=== PATIENT | female | born 2000 | race African-American/Black ===

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

== ENCOUNTER 2022-08-04 08:58 | Emergency (ER) | payer MEDICAID, OTHER ==
[~2022-08-04] VITALS: Ht 157.5 cm; Wt 54.5 kg
[2022-08-04 09:04] VITALS: TEMP 98
[2022-08-04 10:25] VITALS: BP 110/72; PULSE 102; RESP 18
== END 2022-08-04 11:03 | disposition left against medical advice (07) ==
LOC: EMS 09:12
DX: R10.9 Unspecified abdominal pain (principal)
CPT/HCPCS: 99281; Z7502

== ENCOUNTER 2023-01-08 11:09 | Inpatient (IN) | payer MEDICAID, OTHER ==
[~2023-01-08] VITALS: Ht 165.1 cm; Wt 50.0 kg
[2023-01-08] MEDS ORDERED: HALOPERIDOL LACTATE 5 MG/ML VIAL IM ONE (11:30)
[2023-01-08] MEDS ORDERED: LORazepam 2 MG/ML VIAL IM ONE (11:30)
[2023-01-08] MEDS ORDERED: DiphenhydrAMINE HCL 50 MG/ML VIAL IM ONE (11:30)
[2023-01-08] MEDS ORDERED: LORazepam 2 MG TABLET PO PRN (12:00)
[2023-01-08] MEDS ORDERED: QUEtiapine FUMARATE 100 MG TABLET PO PRN (12:00)
[2023-01-08] MEDS ORDERED: ZOLPIDEM TARTRATE 10 MG TABLET PO PRN (12:00)
[2023-01-08 13:08] LABS: COVID AG,FIA SOURCE NASAL SWAB
[2023-01-08 13:40] LABS: BASOPHILS % (AUTO) 0.5 % (0.0-2.0); EOSINOPHILS % (AUTO) 0.1 % (1.0-6.0); HEMATOCRIT 38.6 % (36-46); HEMOGLOBIN 12.9 g/dL (12.0-16.0); LYMPHOCYTES # (AUTO) 1.7 K/uL (1.0-4.8); LYMPHOCYTES % (AUTO) 25.5 % (22.0-44.0); MEAN CORPUSCULAR HEMOGLOBIN 29.6 pg (26.0-34.0); MEAN CORPUSCULAR HGB CONC 33.6 G/dL (31.0-37.0); MEAN CORPUSCULAR VOLUME 88 fL (80-100); MONOCYTES # (AUTO) 0.4 K/uL (0.1-1.0); MONOCYTES % (AUTO) 6.3 % (2.0-9.0); NEUTROPHILS # (AUTO) 4.4 K/uL (1.8-7.7); NEUTROPHILS % (AUTO) 67.6 % (40.0-70.0); PLATELET COUNT (AUTO) 275 K/uL (150-450); RED BLOOD CELL COUNT(AUTO) 4.38 MIL/uL (4.00-5.20); RED CELL DISTRIBUTION WIDTH 13.9 % (11.5-14.5); WHITE BLOOD COUNT (AUTO) 6.5 K/uL (4.5-11.0)
[2023-01-08 13:56] LABS: ALCOHOL, BLOOD (SERUM) < 3 mg/dL (0-10); ANION GAP 8 mmol/L (8-16); CALCIUM, TOTAL 9.2 mg/dL (8.8-10.5); CARBON DIOXIDE 26 mmol/L (22-29); CHLORIDE 102 mmol/L (98-107); CREATININE 1.17 mg/dL (0.60-1.30); GLOMERULAR FILTR. RATE CALC > 60 mL/min (>60); GLUCOSE,RANDOM 71 mg/dL (70-110); POTASSIUM 4.1 mmol/L (3.5-5.1); SODIUM SERUM 136 mmol/L (136-145); UREA NITROGEN, BLOOD 11 mg/dL (7-18)
[2023-01-08 14:02] LABS: ALANINE AMINOTRANSFERASE 18 U/L (12-78); ALBUMIN 4.1 g/dL (3.4-5.0); ALKALINE PHOSPHATASE 64 U/L (46-116); ASPARTATE AMINOTRANSFERASE 33 U/L (15-37); BILIRUBIN,TOTAL 2.1 mg/dL (0.1-1.0); TOTAL PROTEIN, SERUM 8.5 g/dL (6.4-8.2)
[2023-01-08 14:10] LABS: SARS-COV2 (COVID) ANTIGEN,FIA Negative (Negative)
[2023-01-09 11:29] VITALS: BP 116/75; PULSE 103; RESP 16; TEMP 97.3; O2SAT 99
[2023-01-09 22:17] VITALS: BP 117/82; PULSE 96; RESP 18; TEMP 98; O2SAT 96
[2023-01-10] MEDS ORDERED: MAGNESIUM HYDROXIDE SUSPENSION 30 ML UDCUP PO PRN (07:00)
[2023-01-10] MEDS ORDERED: GuaiFENesin/D-METHORPHAN [SUGAR-FREE] 200-20MG/10 ML SYRUP UDCUP PO PRN (07:00)
[2023-01-10] MEDS ORDERED: MAG HYDROX/ALUMINUM HYD/SIMETH ES 30 ML SUSPENSION UDCUP PO PRN (07:00)
[2023-01-10] MEDS ORDERED: IBUPROFEN 400 MG TABLET PO PRN (07:00)
[2023-01-10] MEDS ORDERED: ALBUTEROL SULFATE HFA 90 MCG/PUFF 8 GM INHALER IH PRN (07:00)
[2023-01-10] MEDS ORDERED: DOCUSATE SODIUM 100 MG CAPSULE PO PRN (07:00)
[2023-01-10] MEDS ORDERED: NICOTINE 14 MG/24 HOUR PATCH TD PRN (07:00)
[2023-01-10] MEDS ORDERED: PETROLATUM,WHITE 28 GM JELLY TP PRN (07:00)
[2023-01-10] MEDS ORDERED: ONDANSETRON HCL 4 MG TABLET PO PRN (07:00)
[2023-01-10] MEDS ORDERED: ACETAMINOPHEN 325 MG TABLET PO PRN (07:00)
[2023-01-10] MEDS ORDERED: LOPERAMIDE HCL 2 MG CAPSULE PO PRN (07:00)
[2023-01-10] MEDS ORDERED: CloNIDine HCL 0.1 MG TABLET PO PRN (07:00)
[2023-01-10 08:23] VITALS: BP 102/74; PULSE 100; RESP 18; TEMP 98; O2SAT 97
[2023-01-10 20:07] VITALS: BP 105/85; PULSE 98; RESP 18; TEMP 98; O2SAT 98
[2023-01-10] MEDS: OLANZapine 7.5 MG TABLET PO SCH (21:00)
[2023-01-11] MEDS: DIVALPROEX SODIUM 500 MG DR TABLET PO SCH ×3 (08:34→16:35)
[2023-01-11 08:42] VITALS: BP 101/67; PULSE 100; RESP 17; TEMP 97.5; O2SAT 99
[2023-01-11 08:42] LABS: APPEARANCE,URINE CLEAR (CLEAR); BILIRUBIN,URINE NEGATIVE (NEGATIVE); COLOR,URINE LIGHT YELLOW (YELLOW); GLUCOSE, URINE (UA) NEGATIVE (NEGATIVE); KETONES,URINE NEGATIVE (NEGATIVE); LEUKOCYTE ESTERASE ,URINE TRACE (NEGATIVE); NITRATE,URINE NEGATIVE (NEGATIVE); OCCULT BLOOD,URINE NEGATIVE (NEGATIVE); PROTEIN,URINE NEGATIVE (NEGATIVE); SPECIFIC GRAVITIY, URINE 1.008 (1.003-1.030); UROBILINOGEN,URINE <=1.0 mg/dL (<=1.0)
[2023-01-11 08:45] LABS: HEMOGLOBIN A1C 5.1 % (3.8-5.6)
[2023-01-11 08:49] LABS: ALCOHOL, URINE DRUG SCREEN NEGATIVE (NEGATIVE); AMPHET/METH SCREEN,URINE NEGATIVE (NEGATIVE); BARBITURATE SCREEN, URINE NEGATIVE (NEGATIVE); BENZODIAZEPINES SCREEN,URINE NEGATIVE (NEGATIVE); CANNABINOID SCREEN,URINE NEGATIVE (NEGATIVE); COCAINE SCREEN,URINE NEGATIVE (NEGATIVE); METHADONE SCREEN, URINE NEGATIVE (NEGATIVE); OPIATE SCREEN,URINE NEGATIVE (NEGATIVE); PHENCYCLIDINE SCREEN,URINE NEGATIVE (NEGATIVE)
[2023-01-11 08:49] LABS: THYROID STIMULATING HORMONE 0.78 uIU/mL (0.36-3.74)
[2023-01-11 09:02] LABS: BACTERIA,URINE Few /HPF (None Seen); RBC,URINE None Seen /HPF (0-2); SQUAMOUS EPITHELIAL CELL,UR Moderate /LPF (None Seen); WBC,URINE 0-2 /HPF (0-5)
[2023-01-11] MEDS: OLANZapine 7.5 MG TABLET PO SCH (20:39)
[2023-01-11 20:55] VITALS: RESP 18; TEMP 98
[2023-01-12 08:13] VITALS: RESP 16
[2023-01-12] MEDS: DIVALPROEX SODIUM 500 MG DR TABLET PO SCH ×2 (09:00→16:24)
[2023-01-12 20:00] VITALS: BP 136/80; PULSE 102; RESP 18; TEMP 97.3; O2SAT 100
[2023-01-12] MEDS: OLANZapine 7.5 MG TABLET PO SCH (20:18)
[2023-01-13] MEDS ORDERED: HALOPERIDOL LACTATE 5 MG/ML VIAL IM ONE (07:45)
[2023-01-13] MEDS ORDERED: LORazepam 2 MG/ML VIAL IM ONE (07:45)
[2023-01-13] MEDS ORDERED: DiphenhydrAMINE HCL 50 MG/ML VIAL IM ONE (07:45)
[2023-01-13 08:34] VITALS: RESP 18
[2023-01-13] MEDS: DIVALPROEX SODIUM 500 MG DR TABLET PO SCH ×2 (09:00→17:00)
[2023-01-13 20:56] VITALS: RESP 18
[2023-01-13] MEDS: OLANZapine 7.5 MG TABLET PO SCH (21:00)
[2023-01-14 09:07] VITALS: BP 101/67; PULSE 100; RESP 17; TEMP 97.3
[2023-01-14] MEDS: DIVALPROEX SODIUM 500 MG DR TABLET PO SCH ×2 (09:12→17:00)
[2023-01-14] MEDS ORDERED: DiphenhydrAMINE HCL 25 MG CAPSULE PO PRN (12:15)
[2023-01-14] MEDS: OLANZapine 7.5 MG TABLET PO SCH (21:00)
[2023-01-14 23:22] VITALS: RESP 18; TEMP 97.5
[2023-01-15] MEDS: DIVALPROEX SODIUM 500 MG DR TABLET PO SCH ×2 (08:20→17:00)
[2023-01-15 08:59] VITALS: BP 100/63; PULSE 105; RESP 17; TEMP 97.5; O2SAT 96
[2023-01-15] MEDS: OLANZapine 7.5 MG TABLET PO SCH (21:00)
[2023-01-15 23:45] VITALS: BP 121/60; PULSE 87; RESP 17; TEMP 97.8; O2SAT 96
[2023-01-16] MEDS: DIVALPROEX SODIUM 500 MG DR TABLET PO SCH ×4 (08:31→17:15)
[2023-01-16 08:57] VITALS: BP 105/67; PULSE 100; RESP 18; TEMP 98; O2SAT 98
[2023-01-16] MEDS: ARIPiprazole 10 MG TABLET PO SCH (09:14)
[2023-01-16 20:35] VITALS: BP 102/62; PULSE 77; RESP 18; TEMP 97.8
[2023-01-17] MEDS: DIVALPROEX SODIUM 500 MG DR TABLET PO SCH ×2 (09:00→17:00)
[2023-01-17] MEDS: ARIPiprazole 10 MG TABLET PO SCH (09:30)
[2023-01-17 09:38] VITALS: BP 97/62; PULSE 88; RESP 18; TEMP 98.3
[2023-01-18 06:40] VITALS: BP 105/64; PULSE 82; RESP 18; TEMP 97.9
[2023-01-18] MEDS: DIVALPROEX SODIUM 500 MG DR TABLET PO SCH (08:03)
[2023-01-18] MEDS: ARIPiprazole 10 MG TABLET PO SCH (08:03)
[2023-01-18 08:36] VITALS: BP 98/60; PULSE 81; RESP 18; TEMP 97.3; O2SAT 99
[2023-01-18] MEDS ORDERED: DIVA-112 PO (10:46)
[2023-01-18] MEDS ORDERED: ARIP10TA38 PO (10:46)
== END 2023-01-18 15:45 | disposition home or self-care (01) | DRG 750 ==
LOC: EMS 11:39 → B3A 01-09 10:10
PROVIDERS: ADMIT Psychiatry & Neurology Psychiatry; ATTEND Psychiatry & Neurology Psychiatry
PROC: GZHZZZZ Group Psychotherapy (ICD-10-PCS; principal; 2023-01-11)
DX: F25.0 Schizoaffective disorder, bipolar type (principal); R45.851 Suicidal ideations; Z91.148 Patient's other noncompliance with medication regimen for other reason; R00.0 Tachycardia, unspecified; Z20.822 Contact with and (suspected) exposure to COVID-19; E80.6 Other disorders of bilirubin metabolism; Z86.11 Personal history of tuberculosis; Z88.8 Allergy status to other drugs, medicaments and biological substances
CPT/HCPCS: 80053; 80061; 80164; 80307; 81001; 83036; 84443; 84703; 85025; 99285; G0480; J1200; J1630; J2060; Q0162

== ENCOUNTER 2023-11-13 07:52 | Emergency (ER) | payer MEDICAID, OTHER ==
[~2023-11-13] VITALS: Ht 165.1 cm; Wt 70.0 kg
[~2023-11-13 07:52] MED LIST: ARIP10TA38 PO; DIVA-112 PO
[2023-11-13 07:59] VITALS: BP 107/59; PULSE 88; RESP 18; TEMP 98.7; O2SAT 100
[2023-11-13 08:38] LABS: BASOPHILS % (AUTO) 0.7 % (0.0-2.0); EOSINOPHILS % (AUTO) 1.3 % (1.0-6.0); HEMATOCRIT 36.3 % (36-46); HEMOGLOBIN 11.7 g/dL (12.0-16.0); LYMPHOCYTES # (AUTO) 1.6 K/uL (1.0-4.8); LYMPHOCYTES % (AUTO) 30.9 % (22.0-44.0); MEAN CORPUSCULAR HEMOGLOBIN 27.3 pg (26.0-34.0); MEAN CORPUSCULAR HGB CONC 32.1 G/dL (31.0-37.0); MEAN CORPUSCULAR VOLUME 85 fL (80-100); MONOCYTES # (AUTO) 0.4 K/uL (0.1-1.0); MONOCYTES % (AUTO) 7.3 % (2.0-9.0); NEUTROPHILS # (AUTO) 3.1 K/uL (1.8-7.7); NEUTROPHILS % (AUTO) 59.8 % (40.0-70.0); PLATELET COUNT (AUTO) 269 K/uL (150-450); RED BLOOD CELL COUNT(AUTO) 4.27 MIL/uL (4.00-5.20); WHITE BLOOD COUNT (AUTO) 5.2 K/uL (4.5-11.0)
== END 2023-11-13 13:56 | disposition left against medical advice (07) ==
LOC: EMS 07:59
DX: O26.891 Other specified pregnancy related conditions, first trimester (principal); Z53.21 Procedure and treatment not carried out due to patient leaving prior to being seen by health care provider
CPT/HCPCS: 84702; 85025

== ENCOUNTER 2024-11-09 17:30 | Emergency (ER) | payer MEDICAID, OTHER ==
[~2024-11-09] VITALS: Ht 160 cm; Wt 56.8 kg
[2024-11-09] MEDS ORDERED: BENZ0.5T52 PO (17:39)
[2024-11-09] MEDS ORDERED: LUMA42CA4 PO (17:39)
[2024-11-09 17:43] VITALS: TEMP 98.1
[2024-11-09 18:18] VITALS: BP 110/65; PULSE 92; RESP 17; O2SAT 98
[2024-11-09] MEDS ORDERED: LUMA21CA PO (18:21)
[2024-11-09] MEDS: SULFAMETHOX/TRIMETH DS 800-160 MG/TABLET PO ONE (18:29)
[2024-11-09] MEDS: BACITRACIN 0.9 GM PACKET OINTMENT TP ONE (18:29)
[2024-11-09] MEDS: CEPHALEXIN MONOHYDRATE 500 MG CAPSULE PO ONE (18:30)
[2024-11-09] MEDS: LIDOCAINE 1% 10 ML VIAL SQ ONE (18:30)
[2024-11-09] MEDS ORDERED: SULF-261 PO (19:12)
[2024-11-09] MEDS ORDERED: CEPH-558 PO (19:12)
== END 2024-11-09 19:16 | disposition home or self-care (01) ==
LOC: EMS 17:30
DX: L02.411 Cutaneous abscess of right axilla (principal); F20.9 Schizophrenia, unspecified; F31.9 Bipolar disorder, unspecified; Z79.899 Other long term (current) drug therapy; Z88.8 Allergy status to other drugs, medicaments and biological substances
CPT/HCPCS: 99283; 10060; J3490

== ENCOUNTER 2024-12-15 13:14 | Inpatient (IN) | payer MEDICAID, OTHER ==
[~2024-12-15] VITALS: Ht 165.1 cm; Wt 53.1 kg
[~2024-12-15 13:14] MED LIST changes: -ARIP10TA38 PO; +BENZ0.5T52 PO; +CEPH-558 PO; -DIVA-112 PO; +LUMA21CA PO; +SULF1TAB94 PO
[2024-12-15] MEDS ORDERED: LUMA42CA4 PO (13:38)
[2024-12-15] MEDS ORDERED: BENZ2TAB84 PO (13:38)
[2024-12-15 13:46] LABS: COVID AG,FIA SOURCE NASAL SWAB
[2024-12-15 13:47] LABS: PLATELET COUNT (AUTO) 244 K/uL (150-450); RED BLOOD CELL COUNT(AUTO) 4.40 MIL/uL (4.00-5.20); RED CELL DISTRIBUTION WIDTH 17.1 % (11.5-14.5); WHITE BLOOD COUNT (AUTO) 3.2 K/uL (4.5-11.0)
[2024-12-15 14:02] LABS: CALCIUM, TOTAL 9.3 mg/dL (8.8-10.5); CREATININE 1.17 mg/dL (0.60-1.30); GLOMERULAR FILTR. RATE CALC > 60 mL/min (>60); GLUCOSE,RANDOM 73 mg/dL (70-110); SODIUM SERUM 138 mmol/L (136-145); UREA NITROGEN, BLOOD 9 mg/dL (7-18)
[2024-12-15 14:07] LABS: SARS-COV2 (COVID) ANTIGEN,FIA Negative (Negative)
[2024-12-15 14:29] LABS: APPEARANCE,URINE CLEAR (CLEAR); GLUCOSE, URINE (UA) NEGATIVE (NEGATIVE); LEUKOCYTE ESTERASE ,URINE MODERATE (NEGATIVE); NITRATE,URINE NEGATIVE (NEGATIVE); OCCULT BLOOD,URINE NEGATIVE (NEGATIVE); SPECIFIC GRAVITIY, URINE 1.022 (1.003-1.030)
[2024-12-15 14:34] LABS: PH,URINE DRUG SCREEN 6.0 (5.0-8.0)
[2024-12-15 14:35] LABS: ALCOHOL, URINE DRUG SCREEN NEGATIVE (NEGATIVE); AMPHET/METH SCREEN,URINE NEGATIVE (NEGATIVE); BARBITURATE SCREEN, URINE NEGATIVE (NEGATIVE); CANNABINOID SCREEN,URINE NEGATIVE (NEGATIVE); COCAINE SCREEN,URINE NEGATIVE (NEGATIVE); METHADONE SCREEN, URINE NEGATIVE (NEGATIVE)
[2024-12-15 14:42] LABS: HCG,QUAL URINE NEGATIVE (NEGATIVE)
[2024-12-15 14:44] LABS: SQUAMOUS EPITHELIAL CELL,UR Moderate /LPF (None Seen)
[2024-12-15] MEDS: CEPHALEXIN MONOHYDRATE 500 MG CAPSULE PO ONE (17:04)
[2024-12-15 17:07] VITALS: O2SAT 100
[2024-12-15 18:38] VITALS: BP 108/78; PULSE 95; RESP 18; TEMP 97.2; O2SAT 100
[2024-12-15] MEDS ORDERED: ACETAMINOPHEN 325 MG TABLET PO PRN (19:45)
[2024-12-15] MEDS ORDERED: ALBUTEROL SULFATE HFA 90 MCG/PUFF 8 GM INHALER IH PRN (19:45)
[2024-12-15] MEDS ORDERED: GuaiFENesin/D-METHORPHAN [SUGAR-FREE] 200-20MG/10 ML SYRUP UDCUP PO PRN (19:45)
[2024-12-15] MEDS ORDERED: MAGNESIUM HYDROXIDE SUSPENSION 30 ML UDCUP PO PRN (19:45)
[2024-12-15] MEDS ORDERED: NICOTINE 14 MG/24 HOUR PATCH TD PRN (19:45)
[2024-12-15] MEDS ORDERED: LOPERAMIDE HCL 2 MG CAPSULE PO PRN (19:45)
[2024-12-15] MEDS ORDERED: ONDANSETRON 4 MG TABLET PO PRN (19:45)
[2024-12-15] MEDS ORDERED: PETROLATUM,WHITE 28 GM JELLY TP PRN (19:45)
[2024-12-15] MEDS ORDERED: MAG HYDROX/ALUMINUM HYD/SIMETH ES 30 ML SUSPENSION UDCUP PO PRN (19:45)
[2024-12-15] MEDS ORDERED: DOCUSATE SODIUM 100 MG CAPSULE PO PRN (19:45)
[2024-12-15] MEDS ORDERED: IBUPROFEN 400 MG TABLET PO PRN (19:45)
[2024-12-15] MEDS ORDERED: INFLUENZA VIRUS VACCINE TVS (6MO+) 2025-26/PF 45 MCG/0.5 ML SYRINGE IM. ONE (20:30)
[2024-12-15 20:49] VITALS: BP 105/76; PULSE 103; RESP 16; TEMP 98.1; O2SAT 99
[2024-12-16] MEDS: CEPHALEXIN MONOHYDRATE 500 MG CAPSULE PO SCH (08:08)
[2024-12-16 08:13] VITALS: BP 101/68; PULSE 95; RESP 17; TEMP 98.4; O2SAT 100
[2024-12-16 09:23] LABS: CHOL/HDL RATIO 2.3 (3.9-5.7); LDL CHOL (CALC.) 77.0 mg/dL (0-130)
[2024-12-16] MEDS: ZOLPIDEM TARTRATE 10 MG TABLET PO PRN (20:33)
[2024-12-17 08:27] VITALS: BP 100/71; PULSE 95; RESP 16; TEMP 98.8; O2SAT 100
[2024-12-17 20:12] VITALS: BP 101/65; PULSE 75; RESP 17; TEMP 98.2; O2SAT 97
[2024-12-18 08:37] VITALS: BP 100/72; PULSE 100; RESP 17; TEMP 98.4; O2SAT 98
[2024-12-18 20:08] VITALS: BP 94/67; PULSE 71; RESP 18; TEMP 98.7; O2SAT 98
[2024-12-19 08:10] VITALS: BP 104/67; PULSE 75; RESP 17; TEMP 98.2; O2SAT 97
[2024-12-19 16:42] VITALS: BP 104/78; RESP 17; O2SAT 97
[2024-12-19 20:18] VITALS: BP 104/70; PULSE 90; RESP 17; TEMP 98.1; O2SAT 98
[2024-12-20 08:24] VITALS: BP 103/69; PULSE 78; RESP 18; TEMP 98.2; O2SAT 95
[2024-12-20] MEDS ORDERED: LEVO-72 PO (13:25)
[2024-12-20] MEDS ORDERED: ARIP10TA38 PO (13:36)
[2024-12-21] MEDS ORDERED: ARIP10TA38 PO (05:30)
[2024-12-21] MEDS ORDERED: BENZ-247 PO (14:46)
== END 2024-12-20 16:30 | disposition home or self-care (01) | DRG 761 ==
LOC: EMS 13:14 → B2S 17:05
PROVIDERS: ADMIT Psychiatry & Neurology Psychiatry; ATTEND Psychiatry & Neurology Psychiatry
PROC: GZHZZZZ Group Psychotherapy (ICD-10-PCS; principal; 2024-12-16)
PROC: GZ52ZZZ Individual Psychotherapy, Cognitive (ICD-10-PCS; 2024-12-16)
DX: F25.1 Schizoaffective disorder, depressive type (principal); R45.851 Suicidal ideations; D72.819 Decreased white blood cell count, unspecified; N39.0 Urinary tract infection, site not specified; F31.9 Bipolar disorder, unspecified; D64.9 Anemia, unspecified; Z20.822 Contact with and (suspected) exposure to COVID-19; G47.00 Insomnia, unspecified; F41.9 Anxiety disorder, unspecified; Z79.899 Other long term (current) drug therapy; Z86.11 Personal history of tuberculosis; Z91.51 Personal history of suicidal behavior
CPT/HCPCS: 80048; 80061; 80307; 81001; 83036; 84436; 84443; 84703; 85025; G0480

== ENCOUNTER 2024-12-21 13:34 | Emergency (ER) | payer MEDICAID ==
[~2024-12-21] VITALS: Ht 165.1 cm; Wt 52.7 kg
[~2024-12-21 13:34] MED LIST changes: +ARIP10TA38 PO; -BENZ0.5T52 PO; -CEPH-558 PO; +LEVO-72 PO; -LUMA21CA PO; -SULF1TAB94 PO
[2024-12-21 13:45] VITALS: TEMP 99
[2024-12-21] MEDS: BENZTROPINE MESYLATE 2 MG/2 ML VIAL IVP ONE (14:10)
[2024-12-21 14:15] LABS: CALCIUM, TOTAL 8.6 mg/dL (8.8-10.5); CREATININE 0.82 mg/dL (0.60-1.30); GLOMERULAR FILTR. RATE CALC > 60 mL/min (>60); GLUCOSE,RANDOM 99 mg/dL (70-110); SODIUM SERUM 141 mmol/L (136-145); UREA NITROGEN, BLOOD 13 mg/dL (7-18)
[2024-12-21 14:21] LABS: ASPARTATE AMINOTRANSFERASE 12.0 U/L (15-37); TOTAL PROTEIN, SERUM 7.4 g/dL (6.4-8.2)
[2024-12-21 14:25] LABS: TROPONIN I-HIGH SENSITIVITY Less Than 4 ng/L (<51)
[2024-12-21 14:37] LABS: PLATELET COUNT (AUTO) 230 K/uL (150-450); RED BLOOD CELL COUNT(AUTO) 4.23 MIL/uL (4.00-5.20); RED CELL DISTRIBUTION WIDTH 16.9 % (11.5-14.5); WHITE BLOOD COUNT (AUTO) 4.7 K/uL (4.5-11.0)
[2024-12-21] MEDS ORDERED: BENZ-247 PO (14:46)
[2024-12-21 15:20] VITALS: BP 129/82; PULSE 95; RESP 16; O2SAT 100
== END 2024-12-21 15:21 | disposition home or self-care (01) ==
LOC: EMS 13:37
DX: G24.09 Other drug induced dystonia (principal); F41.9 Anxiety disorder, unspecified; F31.9 Bipolar disorder, unspecified; F20.9 Schizophrenia, unspecified; Z79.899 Other long term (current) drug therapy; Z86.11 Personal history of tuberculosis; Z91.0120 Allergy to eggs, unspecified
CPT/HCPCS: 99285; 96374; 71045; 80048; 80076; 84484; 84703; 85025; 36415; 93005; J0515